=== PATIENT | male | born 1935 | race Caucasian/White ===

== ENCOUNTER → 2018-07-14 | Outpatient (REF) | payer MEDICARE ==
[2018-07-14 17:44] LABS: APPEARANCE, URINE CLEAR (CLEAR); BACTERIA, URINE AUTO NEGATIVE (NEGATIVE); BILIRUBIN, URINE AUTO NEGATIVE (NEGATIVE); BLOOD, URINE BLOOD NEGATIVE (NEGATIVE); COLOR, URINE YELLOW (YELLOW); GLUCOSE, URINE (UA) AUTO 2+ mg/dL (NEGATIVE); KETONE, URINE AUTO NEGATIVE (NEGATIVE); LEUKOCYTE ESTERASE, URINE AUTO NEGATIVE (NEGATIVE); MUCUS, URINE SMALL (NEGATIVE); NITRITE, URINE AUTO NEGATIVE (NEGATIVE); PROTEIN, URINE AUTO NEGATIVE (NEGATIVE); RBC, URINE AUTO 0 /HPF (0-3); SPECIFIC GRAVITY URINE AUTO 1.009 (1.002-1.035); SQUAMOUS EPITHELIAL CELL UR AU 0 /HPF (0-6); UROBILINOGEN, URINE AUTO 0.2 mg/dL (0.0-2.0); WBC, URINE AUTO 0 /HPF (0-3)
== END ==
LOC: M SMT 17:16
DX: R35.0 Frequency of micturition (principal)
CPT/HCPCS: 81001

== ENCOUNTER → 2021-11-21 | Outpatient (CLI) | payer MEDICARE ==
[~2021-11-21] MED LIST: APAP325T4 PO; CARV3.12 PO; CIPR250T3 PO; COLA100C5 PO; CULTCAP2 PO; ELIQ5TAB PO; EUTH50TA PO; FAMO1TAB11 PO; INSUHUMDS SC; LANTINJ4 SC; LISI2.5T9 PO; MECL-136 PO; POTA1TAB23 PO; SENN-85 PO; TORS20TA2 PO; VITA-168 PO
== END ==
LOC: M LABSMTC 10:17
PROVIDERS: ATTEND Anesthesiology
DX: Z01.812 Encounter for preprocedural laboratory examination (principal); Z20.822 Contact with and (suspected) exposure to COVID-19

== ENCOUNTER 2021-11-26 06:19 | Day surgery (SDC) | payer MEDICARE ==
[~2021-11-26] VITALS: Ht 175.3 cm; Wt 87.1 kg
[~2021-11-26 06:19] MED LIST changes: +LR 1,000 ML IV SCH; +ceFAZolin SOD 2 GM in IV 1 EA IV SCH
[2021-11-26] MEDS ORDERED: propofoL 200 MG/20 ML VIAL As Ordered ONE (06:53)
[2021-11-26] MEDS ORDERED: LIDOCAINE 2% 100MG/5ML SDV (FOR ANES.) As Ordered ONE (06:53)
[2021-11-26] MEDS ORDERED: fentaNYL 100 MCG/2 ML INJECTION As Ordered ONE (07:06)
[2021-11-26] MEDS ORDERED: ONDANSETRON 4MG/2ML VIAL IV PRN (08:30)
[2021-11-26] MEDS ORDERED: fentaNYL 100 MCG/2 ML INJECTION IV PRN (08:30)
[2021-11-26] MEDS ORDERED: oxyCODONE 5MG TAB PO PRN (08:30)
[2021-11-26] MEDS ORDERED: LR 1,000 ML IV SCH (08:30)
[2021-11-26 09:00] VITALS: BP 131/63
[2021-12-01 01:06] LABS: Ca Ox Monohydrate 100 % (.); Size 6x6 mm (.)
== END 2021-11-26 09:40 | disposition home or self-care (01) ==
LOC: M SDC 06:19
PROVIDERS: ATTEND Urology
DX: N21.0 Calculus in bladder (principal); E03.9 Hypothyroidism, unspecified; E10.9 Type 1 diabetes mellitus without complications; I10 Essential (primary) hypertension; I34.9 Nonrheumatic mitral valve disorder, unspecified; M12.9 Arthropathy, unspecified; R06.83 Snoring; R21 Rash and other nonspecific skin eruption; R33.9 Retention of urine, unspecified; Z79.01 Long term (current) use of anticoagulants; Z79.4 Long term (current) use of insulin; Z79.899 Other long term (current) drug therapy; Z88.2 Allergy status to sulfonamides; Z87.440 Personal history of urinary (tract) infections; Z87.891 Personal history of nicotine dependence; Z95.810 Presence of automatic (implantable) cardiac defibrillator; Z96.0 Presence of urogenital implants
CPT/HCPCS: 52318; 82365; 88300; C1769; J0690; J3010

== ENCOUNTER → 2022-01-29 | Outpatient (REF) | payer MEDICARE ==
[~2022-01-29] MED LIST changes: -LR 1,000 ML IV SCH; -ceFAZolin SOD 2 GM in IV 1 EA IV SCH
== END ==
LOC: M SFHCDERM 19:00
PROVIDERS: ATTEND Nurse Practitioner Family
DX: L57.0 Actinic keratosis (principal)